=== PATIENT | female | born 1970 | race Caucasian/White ===

== ENCOUNTER → 2020-03-26 | Outpatient (CLI) | payer OTHER ==
[~2020-03-26] MED LIST: DDAVP0.1 MG/1 M; ELIQUIS5 MG PO; ENOXAPARIN40 MG/0.4 SQ; FLAGYL500 MG PO; FLUDROCORTISON0.1 MG PO; GLUCOPHAGE 500500 MG PO; LEVAQUIN500 MG PO; MAGIC MOUTHWASH PO; METFORMIN HCL500 MG PO; NEXIUM20 MG PO; NORCO 5-325 TA1 EACH PO; PREDNISONE 10 M10 MG PO; PREDNISONE PO; PROTONIX40 MG PO; SYNTHROID88 MCG PO; VITAMIN D33000 UNIT PO; ZANTAC150 MG PO; ZOFRAN 8 MG TAB8 MG PO
== END ==
LOC: ECHO 09:00
DX: I26.99 Other pulmonary embolism without acute cor pulmonale (principal); R00.0 Tachycardia, unspecified; C18.7 Malignant neoplasm of sigmoid colon; C77.2 Secondary and unspecified malignant neoplasm of intra-abdominal lymph nodes
CPT/HCPCS: ECHO; 93306

== ENCOUNTER → 2020-08-15 | Day surgery (SDC) | payer OTHER ==
[2020-08-16 16:13] LABS: ENDOMYSIAL ANTIBODY IGA Negative (Negative); IMMUNOGLOBULIN A, QN, SERUM 266 mg/dL (87-352); T-TRANSGLUTAMINASE (TTG) IGA <2 U/mL (0-3)
== END | disposition home or self-care (01) ==
LOC: OR 05:55
PROVIDERS: Internal Medicine Gastroenterology
DX: Z12.11 Encounter for screening for malignant neoplasm of colon (principal); K57.30 Diverticulosis of large intestine without perforation or abscess without bleeding; K56.699 Other intestinal obstruction unspecified as to partial versus complete obstruction; K64.1 Second degree hemorrhoids; K62.89 Other specified diseases of anus and rectum; K21.9 Gastro-esophageal reflux disease without esophagitis; E11.9 Type 2 diabetes mellitus without complications; E03.9 Hypothyroidism, unspecified; Z85.038 Personal history of other malignant neoplasm of large intestine; Z93.3 Colostomy status; Z88.2 Allergy status to sulfonamides; Z88.0 Allergy status to penicillin; Z91.041 Radiographic dye allergy status; Z79.01 Long term (current) use of anticoagulants; Z79.84 Long term (current) use of oral hypoglycemic drugs; Z79.899 Other long term (current) drug therapy
CPT/HCPCS: 36415; 82784; 82962; J2001; J2704; J7040

== ENCOUNTER → 2021-07-30 | Outpatient (CLI) | payer OTHER | LOC: CT 10:55 | DX: C19 Malignant neoplasm of rectosigmoid junction (principal) | CPT/HCPCS: 71260; Q9967 ==